=== PATIENT | male | born 1935 | race Two or more races ===

== ENCOUNTER 2022-07-11 11:02 | Emergency (ER) | payer BC, OTHER ==
[~2022-07-11] VITALS: Ht 165.1 cm; Wt 42.2 kg
--- NOTE | 2022-07-11 11:10 | NUR ---
[id number], HERE FOR G TUBE DISLODGEMENT NOTED THIS MORNING ON HOSPICE/ DNR PER PARAMEDICS. PLACED IN BED, AWAKE- NON VERBAL, BREATHING EVEN AND UNLABORED SATURATING AT 96%RA.
--- NOTE | 2022-07-11 11:40 | NUR ---
[facility] [phone] [place]
--- NOTE | 2022-07-11 11:45 | NUR ---
BLOOD DRAWN AND SENT TO LAB
--- NOTE | 2022-07-11 11:54 | NUR ---
YENY [phone] OTHER [facility] SHE IS POA WILL FAX DOCUMENTS.
[2022-07-11] MEDS ORDERED: IV NS 0.9% 1,000 ML IV ONE (12:00)
--- NOTE | 2022-07-11 12:06 | NUR ---
SWAB FOR COVID19 SENT TO LAB
[2022-07-11 12:07] LABS: BASOPHILS % (AUTO) 0.5 % (0.0-2.0); EOSINOPHILS % (AUTO) 5.2 % (0.0-6.0); HEMATOCRIT 33 % (39-51); HEMOGLOBIN 10.6 g/dL (13.5-17.5); LYMPHOCYTES # (AUTO) 1.6 K/uL (0.8-4.8); LYMPHOCYTES % (AUTO) 31.5 % (20.0-44.0); MEAN CORPUSCULAR HGB CONC 32 g/dl (31.0-36.0); MEAN CORPUSCULAR VOLUME 84 fL (80-96); MONOCYTES # (AUTO) 0.4 K/uL (0.1-1.30); MONOCYTES % (AUTO) 8.6 % (2.0-12.0); NEUTROPHILS # (AUTO) 2.7 K/uL (1.8-8.9); NEUTROPHILS % (AUTO) 54.2 % (43.0-81.0); PLATELET COUNT (AUTO) 213 K/uL (150-450); RED BLOOD CELL COUNT(AUTO) 3.96 MIL/uL (4.5-6.0); WHITE BLOOD COUNT (AUTO) 5.1 K/uL (4.3-11.0)
--- NOTE | 2022-07-11 12:15 | NUR ---
DR. ROMERO [phone] OLIVEROS.
[2022-07-11 12:39] LABS: CREATININE 1.2 mg/dL (0.6-1.3); POTASSIUM 4.4 mmol/L (3.5-5.1)
--- NOTE | 2022-07-11 13:22 | NUR ---
[facility] GOING TO [facility]. WILL CALL WITH BED ASSIGNMENT AND ETA OF TRANSPORT.
--- NOTE | 2022-07-11 13:29 | NUR ---
TRANSPORT AUTH #: [id number], [facility]
--- NOTE | 2022-07-11 13:37 | NUR ---
[facility] FLORES [facility] PT ACCRPTED TO UNDER DR. HEATHER MENDOZA PLEASE CALL [phone] FOR REPORT.
[2022-07-11 13:38] VITALS: BP 145/79
--- NOTE | 2022-07-11 14:46 | NUR ---
REPORT GIVEN TO MODESTA HOLLOWAY ER-DEPT. [facility].
--- NOTE | 2022-07-11 14:50 | NUR ---
PATIENT PICKUP BY [facility] STAFF AND REPORT WAS GIVEN FOR TRANSFER TO [facility] IN A STABLE CONDITION.
== END 2022-07-11 14:50 | disposition short-term general hospital (02) ==
LOC: ER 11:10
DX: R13.10 Dysphagia, unspecified (principal); R62.7 Adult failure to thrive; Z86.73 Personal history of transient ischemic attack (TIA), and cerebral infarction without residual deficits; Z43.1 Encounter for attention to gastrostomy; Z68.1 Body mass index [BMI] 19.9 or less, adult; Z20.822 Contact with and (suspected) exposure to COVID-19
CPT/HCPCS: 99285; 96360; 71045; 87426; 93005; 85025; 80048; 36415; 85730; 87081; J7030; A6403; C9803